=== PATIENT | male | born 1980 | race Caucasian/White ===

== ENCOUNTER 2016-05-27 05:47 | Emergency (ER) | payer BC, OTHER ==
[~2016-05-27] VITALS: Ht 185.4 cm; Wt 77.0 kg
[~2016-05-27 05:47] MED LIST: HYDR0.1S10 PO; MISCCAP80 PO
[2016-05-27 05:49] VITALS: Ht 185.4 cm; Wt 77.0 kg
[2016-05-27] MEDS ORDERED: DEXAMETHASONE SOD INJ 10 MG/ML VIAL IV ONE (06:00)
[2016-05-27] MEDS ORDERED: KETOROLAC TROMETHAMINE 30 MG/ML VIAL IV STA (06:00)
[2016-05-27] MEDS ORDERED: ALBUT/IPRATROP 3MG/0.5MG NEB 3 ML VIAL INH STA (06:00)
[2016-05-27] MEDS ORDERED: METOCLOPRAMIDE HCL INJ 5 MG/ML 2 ML VIAL IV STA (06:00)
[2016-05-27] MEDS ORDERED: DiphenhydrAMINE HCL 50 MG/ML VIAL IV STA (06:00)
[2016-05-27] MEDS ORDERED: SODIUM CHLORIDE 0.9% 1000ML 2,000 ML IV STA (06:00)
[2016-05-27] MEDS ORDERED: ACETAMINOPHEN 500 MG TAB PO STA (06:00)
[2016-05-27] MEDS ORDERED: TRAZ50TA35 PO (06:09)
[2016-05-27] MEDS ORDERED: ALBUTEROL HFA 8 GM INHALER INH STA (06:15)
[2016-05-27 06:26] LABS: BASO % 0.1 %; BASO ABS # 0.01 K/uL (0-0.2); COMPLETE YES; EOS % 0.1 %; HEMATOCRIT 35.9 % (42-52); IG% 0.3 %; LYMPH % 6.7 %; LYMPH ABS # 0.52 K/uL (1.2-3.4); MEAN CELL VOLUME 82.2 fL (80-100); MEAN CORPUSCULAR HEMOGLOBIN 29.3 pg (25-34); MEAN CORPUSCULAR HGB CONC 35.7 g/dl (32-36); MEAN PLATELET VOLUME 9.5 fL (7.4-10.4); MONO % 7.8 %; PLATELET COUNT 174 K/uL (130-400); RED BLOOD COUNT 4.37 M/uL (4.7-6.1)
[2016-05-27 06:40] LABS: BUN/CREATININE RATIO 12.3 (10-20); CALCIUM 8.8 mg/dl (8.5-10.1); CREATININE 1.1 mg/dl (0.60-1.40); POTASSIUM 3.5 mmol/L (3.5-5.1)
--- NOTE | 2016-05-27 06:50 | EMERGENCY ROOM VISIT NOTE ---
History First contact with patient: 05:55 Chief Complaint: ILLNESS Stated Complaint: HEADACHE, LUNGS CONGESTED, CHILLS, BODY SORE History of Present Illness The patient is a 35 year old male who presents to the Emergency Room with complaints of cough, congestion, myalgias, arthralgias and scratchy throat for the past day has been congested for 2 weeks. Patient is a juárez. He has been around a lot of smoke. He's been taking Tylenol and Motrin and DayQuil. Patient denies chest pain, dyspnea, abdominal pain, neck stiffness, confusion. He is tolerating by mouth fluids and food. Review of Systems See HPI for pertinent positives & negatives. A total of 10 systems reviewed and were otherwise negative. Past Medical/Surgical History Medical Problems: (1) Tonsillar abscess Family History Cancer Social History Smoking Status: Former Smoker Alcohol Use: occasionally Drug Use: marijuana Marital Status: in relationship Housing Status: lives with friends Occupation Status: employed Current/Historical Medications Scheduled PRN Trazodone Hcl (Trazodone), 50 MG PO HS PRN for Sleep Allergies Coded Allergies: Dust (Verified Allergy, Unknown, ., 05/27/16) Penicillins (Verified Allergy, Unknown, ., 05/27/16) Physical Exam Vital Signs Date Time Temp Pulse Resp B/P Pulse Ox O2 Delivery O2 Flow Rate FiO2 05/27/16 05:49 38.0 95 24 126/61 93 Room Air Physical Exam VITALS: Vitals are noted on the nurse's note and reviewed by myself. Vital signs febrile GENERAL: Pleasant male mildly ill-appearing, in no acute distress, nondiaphoretic, well-developed well-nourished. SKIN: The skin was without rashes, erythema, edema, or bruising. There is no tenting of the skin. Capillary reflex less than 2 seconds. HEAD: Normocephalic atraumatic. EARS: External auditory canals clear, tympanic membranes pearly espino without erythema or effusion bilaterally. EYES: Pupils equal round and reactive to light and accommodation. Conjunctivae without injection, sclerae without icterus. Extraocular movements intact. NOSE: Patent, turbinates without inflammation or discharge. No sinus tenderness. MOUTH: Mucous membranes moist. Pharynx without erythema or exudate. Uvula midline. Airway patent. Tongue does not deviate. NECK: Supple without nuchal rigidity. No lymphadenopathy. No thyromegaly. Cervical spine is nontender. No JVD. No meningeal signs HEART: Regular rate and rhythm without murmurs gallops or rubs. LUNGS: Mild diffuse end expiratory wheezes, without rales or rhonchi. No dullness to percussion. No retractions or accessory muscle use. ABDOMEN: Positive bowel sounds x 4. Normal tympanic percussion. Soft, nontender, without masses or organomegaly. Tse sign negative. No guarding or rebound tenderness. MUSCULOSKELETAL: No muscle atrophy, erythema, or edema noted. NEURO: Patient was alert and oriented to person place and time. Normal sensation to light and sharp touch. No focal neurological deficits. Medical Decision & Procedures Laboratory Results 05/27/16 06:10 Red Blood Count 4.37, Mean Corpuscular Volume 82.2, Mean Corpuscular Hemoglobin 29.3, Mean Corpuscular Hemoglobin Concent 35.7, Mean Platelet Volume 9.5, Neutrophils (%) (Auto) 85.0, Lymphocytes (%) (Auto) 6.7, Monocytes (%) (Auto) 7.8, Eosinophils (%) (Auto) 0.1, Basophils (%) (Auto) 0.1, Neutrophils # (Auto) 6.63, Lymphocytes # (Auto) 0.52, Monocytes # (Auto) 0.61, Eosinophils # (Auto) 0.01, Basophils # (Auto) 0.01 05/27/16 06:10 Test 05/27/16 00:00 05/27/16 06:10 White Blood Count 7.80 K/uL (4.8-10.8) Red Blood Count 4.37 M/uL (4.7-6.1) Hemoglobin 12.8 g/dL (14.0-18.0) Hematocrit 35.9 % (42-52) Mean Corpuscular Volume 82.2 fL (80-100) Mean Corpuscular Hemoglobin 29.3 pg (25-34) Mean Corpuscular Hemoglobin Concent 35.7 g/dl (32-36) Platelet Count 174 K/uL (130-400) Mean Platelet Volume 9.5 fL (7.4-10.4) Neutrophils (%) (Auto) 85.0 % Lymphocytes (%) (Auto) 6.7 % Monocytes (%) (Auto) 7.8 % Eosinophils (%) (Auto) 0.1 % Basophils (%) (Auto) 0.1 % Neutrophils # (Auto) 6.63 K/uL (1.4-6.5) Lymphocytes # (Auto) 0.52 K/uL (1.2-3.4) Monocytes # (Auto) 0.61 K/uL (0.11-0.59) Eosinophils # (Auto) 0.01 K/uL (0-0.5) Basophils # (Auto) 0.01 K/uL (0-0.2) RDW Standard Deviation 40.8 fL (36.4-46.3) RDW Coefficient of Variation 13.4 % (11.5-14.5) Immature Granulocyte % (Auto) 0.3 % Immature Granulocyte # (Auto) 0.02 K/uL (0.00-0.02) Anion Gap 10.0 mmol/L (3-11) Est Creatinine Clear Calc Drug Dose 104.0 ml/min Estimated GFR () 101.7 Estimated GFR (Non- 87.7 BUN/Creatinine Ratio 12.3 (10-20) Calcium Level 8.8 mg/dl (8.5-10.1) Medications Administered Medications (Trade) Dose Ordered Sig/Nan Route Start Time Stop Time Status Last Admin Dose Admin Acetaminophen (Tylenol Tab) 1,000 mg NOW STAT PO 05/27/16 06:00 05/27/16 06:02 DC 05/27/16 06:29 1,000 MG Albuterol/ Ipratropium (Duoneb) 3 ml NOW STAT INH 05/27/16 06:00 05/27/16 06:03 DC 05/27/16 06:30 3 ML Dexamethasone Sodium Phosphate 10 mg 10 mg NOW ONCE IV 05/27/16 06:00 05/27/16 06:03 DC 05/27/16 06:30 10 MG Sodium Chloride (Nss 1000ml) 2,000 ml @ 999 mls/hr Q2H1M STAT IV 05/27/16 06:00 05/27/16 08:00 05/27/16 06:31 999 MLS/HR Ketorolac Tromethamine (Toradol Inj) 30 mg NOW STAT IV 05/27/16 06:00 05/27/16 06:03 DC 05/27/16 06:30 30 MG Metoclopramide HCl (Reglan Inj) 10 mg NOW STAT IV 05/27/16 06:00 05/27/16 06:03 DC 05/27/16 06:29 10 MG Diphenhydramine HCl (Benadryl Inj) 25 mg NOW STAT IV 05/27/16 06:00 05/27/16 06:03 DC 05/27/16 06:29 25 MG Albuterol (Ventolin Hfa Inhaler) 2 puffs ONE STAT INH 05/27/16 06:15 05/27/16 06:16 DC 05/27/16 06:30 2 PUFFS ED Course Prior records/ancillary studies reviewed. Triage Nursing notes reviewed. Additional history obtained from family. The patient's history was concerning for fever. Differential diagnosis: Etiologies such as viral syndrome, otitis, pharyngitis, pneumonia, influenza, meningitis, urinary tract infection, sepsis, bacteremia, as well as others were entertained. Physical examination: Patient is alert, tolerating fluids ER treatment provided: Tylenol, IV fluids, Reglan, Benadryl, Toradol, nebulizer On reassessment the patient felt better. Diagnostics interpreted by me: The labs revealed mild anemia Negative strep test and sent for culture Imaging studies: Chest x-ray with no pneumothorax or free air or consolidation per my interpretation This appears to be consistent with influenza. Patient was neurovascularly and neurologically intact. No signs of meningitis. No signs of airway compromise. No signs of tonsillar abscess. He was advised to take medicines as directed and to follow-up family care in a few days or here in the ER sooner for high fevers, lethargy, neck stiffness, worsening signs or symptoms or as needed. He was strongly encouraged to do vocal rest for the week. By the evaluation outlined above emergent etiologies such as otitis, pharyngitis, pneumonia, meningitis, urinary tract infection, sepsis, bacteremia, as well as others were deemed relatively unlikely. The pt informed about the findings as listed above. All questions were answered and pleased with the treatment. Return instructions were outlined and the patient was discharged in stable condition. Outpatient prescription management: prednisone Referral: The patient was referred back to their primary care physician for follow-up in 2 to 3 days for a recheck of the current condition. Medical Decision As above Impression Primary Impression: Influenza Departure Information Dispostion Home / Self-Care Condition GOOD Referrals No Doctor, Assigned (PCP) Patient Instructions My [facility] Additional Instructions Recommend vocal rest for one week. Prednisone 50mg: Once daily until the prescription is finished. It is best to take this earlier in the day as some patients note occasional difficulty falling asleep when taken in the late evening. Acetaminophen(Tylenol) may be used for fever or pain. Use 1000mg every six hours as needed. Avoid using more than 3000mg in a 24 hour period. (AND/OR) Ibuprofen(Motrin, Advil) may be used for fever or pain. Use 600mg every six hours as needed. Take with food. Avoid using more than 2400mg in a 24 hour period. Do not use 2400mg per day for more than three consecutive days without physician direction. Prolonged inappropriate use can lead to stomach upset or ulcers. Afrin nasal spray: 2-3 sprays to each nostril twice daily as needed for congestion. Do not use for more than 3-4 days because it can lead to worsening rebound congestion. Pseudoephedrine(Sudaphed): 30-60mg every 6 hours as needed for nasal congestion. Do not take this with other stimulant products or supplements. Albuterol Inhaler: Take 2 puffs four times daily for seven days, then as needed. Rest and drink plenty of fluids. Controlling your fever with Tylenol and Ibuprofen as above will make you feel better. Wash your hands after nose blowing, sneezing, or coughing. Most germs are spread through contact, therefore improper hygiene may result in your close contacts and loved ones becoming ill just like you. Continue current medications. Return to the ER for severe headache, neck stiffness, chest pain, difficulty breathing, fevers, vomiting, worsening of your condition, or as needed. Follow up with your primary physician this week for a recheck of your current condition.
[2016-05-27] MEDS ORDERED: PRED50TA PO (06:51)
[2016-05-27 07:41] VITALS: BP 95/43; PULSE 79; TEMP 37.1; O2SAT 96
--- NOTE | 2016-05-27 08:05 | DIAGNOSTIC IMAGING REPORT ---
TWO VIEW CHEST CLINICAL HISTORY: Cough and fever. FINDINGS: PA and lateral chest radiographs are obtained. No priors the cardiomediastinal silhouette is unremarkable. The lungs and pleural spaces are clear. There is no pneumothorax. The bony thorax appears intact. IMPRESSION: No active disease in the chest. Electronically signed by: Mati Braden M.D. 05/27/2016 8:03 AM Dictated Date/Time: 05/27/2016 8:03 AM
== END 2016-05-27 07:43 | disposition home or self-care (01) ==
LOC: C.EDB 05:49
DX: J11.1 Influenza due to unidentified influenza virus with other respiratory manifestations (principal); Z86.19 Personal history of other infectious and parasitic diseases; Z87.891 Personal history of nicotine dependence; Z88.0 Allergy status to penicillin; Z91.09 Other allergy status, other than to drugs and biological substances; Z80.9 Family history of malignant neoplasm, unspecified